=== PATIENT | male | born 1980 | race Caucasian/White ===

== ENCOUNTER 2018-03-20 09:43 | Emergency (ER) | payer OTHER ==
[2018-03-20 10:08] VITALS: O2SAT 98
[2018-03-20] MEDS ORDERED: Tdap Vaccine 0.5 ml Vial (10-64 yrs) IM ONE ×2 (10:55→11:07)
--- NOTE | 2018-03-20 10:57 | C.PDOC ---
History Of Present Illness 37 year old male patient presents to the ER with c/o wound puncture. Patient reports he was at work when a wood with nail fell through his shoe and puncture his right 5th toe. Patient states he never got his tetanus shot. Patient denies weakness and numbness. Chief Complaint (Nursing): Lower Extremity Problem/Injury History Per: Patient History/Exam Limitations: no limitations Onset/Duration Of Symptoms: Hrs Current Symptoms Are (Timing): Still Present - Ankle/Foot Description Of Injury: Other (wound puncture ) Past Medical History Reviewed: Historical Data, Nursing Documentation, Vital Signs Vital Signs: Last Vital Signs Temp 98.9 F 03/20/18 11:20 Pulse 57 L 03/20/18 11:20 Resp 16 03/20/18 11:20 BP 103/64 03/20/18 11:20 Pulse Ox 98 03/23/18 21:01 Family History: States: Unknown Family Hx - Social History Hx Alcohol Use: No Hx Substance Use: No - Immunization History Hx Tetanus Toxoid Vaccination: No Hx Influenza Vaccination: No Hx Pneumococcal Vaccination: No Review Of Systems Except As Marked, All Systems Reviewed And Found Negative. Musculoskeletal: Positive for: Other (puncture wound on rigth 5th toe) Neurological: Negative for: Weakness, Numbness Physical Exam - Physical Exam Appears: Non-toxic, No Acute Distress Skin: Normal Color Head: Atraumatic Cardiovascular: Rhythm Regular Respiratory: Normal Breath Sounds Extremity: Normal ROM, Other (puncture wound on dorsal aspect of right foot 5th toe) Pulses: Left Dorsalis Pedis: Normal, Right Dorsalis Pedis: Normal Neurological/Psych: Oriented x3 Gait: Steady ED Course And Treatment O2 Sat by Pulse Oximetry: 98 (RA) Pulse Ox Interpretation: Normal - Other Rad XR right foot X-Ray: Read By Radiologist Interpretation: Accession No. : [id number]. Patient Name / ID : NANCY GARCIAXIO / [id number]. Exam Date : 03/20/2018 10:58:19 ( Approved ). Study Comment : Sex / Age : M / 37Y. Creator : Bryanna Macias V. Dictator : Bryanna Macias V. Material Movers : Furnace Helper : Bryanna Macias V. Approver2 : Report Date : 03/20/2018 11:22:13. My Comment : . Date of service: 03/20/2018. PROCEDURE: Right Foot Radiographs. HISTORY: puncture wound. COMPARISON: None. FINDINGS: BONES: No fracture seen. Gross cortical interruption. The there is some relative lucency over the middle cuneiform bone and 3rd proximal meta tarsal metaphysis and cystic changes are compatible with this. JOINTS: Normal. SOFT TISSUES: No radiopaque foreign body noted. OTHER FINDINGS: IMPRESSION: No cortical interruption or fracture seen. No radiopaque foreign body appreciated. Other findings as above. Medical Decision Making Medical Decision Making: Impression: puncture wound on dorsal aspect of right foot on 5th toe. Plans: -- XR right foot -- tatanus booster -- keflex Reassess: Disposition - Disposition Referrals: [facility] [place] [Outside] [facility] [Outside] [facility] [place] [Outside] Disposition: HOME/ ROUTINE Disposition Time: 12:11 Condition: GOOD Prescriptions: Cephalexin [cephalexin] 500 mg PO Q8 #21 cap Ibuprofen [Motrin] 600 mg PO Q6 #20 tab Instructions: Wound Care (DC) Forms: [facility] ([place]) - Clinical Impression Clinical Impression: Puncture wound - Scribe Statement The provider has reviewed the documentation as recorded by the Scribkamla Bonner Do Provider Attestation: All medical record entries made by the Scribe were at my direction and personally dictated by me. I have reviewed the chart and agree that the record accurately reflects my personal performance of the history, physical exam, medical decision making, and the department course for this patient. I have also personally directed, reviewed, and agree with the discharge instructions and disposition.
[2018-03-20 11:21] VITALS: BP 103/64; PULSE 57; RESP 16; TEMP 98.9
--- NOTE | 2018-03-20 11:23 | RAD ---
Date of service: 03/20/2018 PROCEDURE: Right Foot Radiographs. HISTORY: puncture wound COMPARISON: None. FINDINGS: BONES: No fracture seen. Gross cortical interruption. The there is some relative lucency over the middle cuneiform bone and 3rd proximal meta tarsal metaphysis and cystic changes are compatible with this. JOINTS: Normal. SOFT TISSUES: No radiopaque foreign body noted. OTHER FINDINGS: IMPRESSION: No cortical interruption or fracture seen. No radiopaque foreign body appreciated. Other findings as above.
== END 2018-03-20 12:11 | disposition home or self-care (01) ==
LOC: C.ER 09:43
DX: S91.134A Puncture wound without foreign body of right lesser toe(s) without damage to nail, initial encounter (principal); W45.0XXA Nail entering through skin, initial encounter; Y92.89 Other specified places as the place of occurrence of the external cause; Y99.0 Civilian activity done for income or pay